=== PATIENT | female | born 1975 | race Caucasian/White ===

== ENCOUNTER 2016-10-07 22:07 | Emergency (ER) | payer OTHER ==
[2016-10-07 22:18] VITALS: BP 116/68; PULSE 79; TEMP 98; BMI 25.0
--- NOTE | 2016-10-07 22:40 | PDOC ---
History of Present Illness - General Chief Complaint: Pain Stated Complaint: ABD PAIN Time Seen by Provider: 10/07/16 22:09 - History of Present Illness Initial Comments: 10/07/16 22:59 Patient speaks mainly Romanian. Son is full time staff interpreter. This 41-year-old woman no significant past medical history presents with a one- day history of lower abdominal pain. She had been seen by your general medical doctor 4 days ago with urinary frequency and dysuria. She was diagnosed as having a urinary tract infection and Keflex 500 mg twice a day for one week was prescribed (patient has been taking medications as prescribed. She states she was also told that her urine test was positive. LMP 09/07/16. Patient noted onset of midline lower abdominal pain earlier today. She has nausea without vomiting. No fever or chills are noted. No vaginal discharge or bleeding No history of ectopic pregnancies although of son was thought to be "tubal" although this was proved not to be. Past History - Past Medical History Allergies/Adverse Reactions: Allergies Allergy/AdvReac Type Severity Reaction Status Date / Time aspirin Allergy Verified 10/07/16 22:09 Home Medications: Ambulatory Orders NK [No Known Home Medication] 10/07/16 - Reproductive History Is Patient Now?: Yes (1 MONTH) - Psycho/Social/Smoking Cessation Hx Anxiety: No Suicidal Ideation: No Smoking History: Unknown if ever smoked Have you smoked in the past 12 months: No Number of Cigarettes Smoked Daily: 0 Information on smoking cessation initiated: No Hx Alcohol Use: No Drug/Substance Use Hx: No Substance Use Type: None Review of Systems - Review of Systems Able to Perform ROS?: Yes Comments:: 12 point review of systems is negative except for what is noted in the history of present illness *Physical Exam - Vital Signs Last Vital Signs Temp Pulse Resp BP Pulse Ox 98 F 79 14 116/68 100 10/07/16 22:11 10/07/16 22:11 10/07/16 22:11 10/07/16 22:11 10/07/16 22:11 - Physical Exam Comments: GENERAL: Awake, alert, and fully oriented, in no acute distress HEAD: No signs of trauma EYES: PERRLA, EOMI, sclera anicteric, conjunctiva clear ENT: Auricles normal inspection, hearing grossly normal, nares patent, oropharynx clear without exudates. Moist mucosa NECK: Normal ROM, supple, no lymphadenopathy, JVD, or masses LUNGS: Breath sounds clear and equal. No wheezes, and no crackles HEART: Regular rate and rhythm, normal S1 and S2, no murmurs, rubs or gallops ABDOMEN: Soft, normoactive bowel sounds. Moderate tenderness suprapubic region ; No guarding, no rebound. No masses EXTREMITIES: Normal range of motion, no edema. No clubbing or cyanosis. No cords, erythema, or tenderness NEUROLOGICAL: Cranial nerves II through XII grossly intact. Normal speech, normal gait SKIN: Warm, Dry, normal turgor, no rashes or lesions noted. ED Treatment Course - LABORATORY CBC & Chemistry Diagram: 10/07/16 23:09 10/07/16 23:09 Medical Decision Making - Medical Decision Making CBC, chemistry profile, quantitative beta hCG, urinalysis and urine test sent. Urine is positive. Urinalysis shows no abnormality on dipstick exam. Because patient is confirmed to be and is in first trimester, ectopic must be ruled out. Pelvic ultrasound ordered. Patient given a 1 L of normal saline IV. Laboratory evaluation notable only for minimal elevation of white blood cell count of 10,900. Remainder of the CBC and chemistry profile are unremarkable. Quantitative beta hCG is 2095, consistent with anywhere from 2-5 weeks gestation Pelvic ultrasound preliminary interpretation by Imaging b2b sales consultant: Small intrauterine gestational sac without evidence of adnexal abnormality. Left- sided corpus luteum cyst. Results discussed with the patient and her . The patient states that she had some gastric discomfort with Keflex and wishes to discontinue them. Since she has already taken a 5 day course of the Keflex, she can stop now and observe for recurrence of symptoms. She states that she has a appointment scheduled with her general medical doctor on October 16. She also plans to follow-up with an paper tube grader within the next few weeks. She should return to the emergency room if she has worsening pain or develops vaginal bleeding/ fever/vomiting *DC/Admit/Observation/Transfer Diagnosis at time of Disposition: First trimester , History of UTI - Discharge Dispostion Disposition: HOME Condition at time of disposition: Stable - Patient Instructions Printed Discharge Instructions: DI for Abdominal Pain -- Early Additional Instructions: stop keflex drink plenty of water followup with your general doctor on October 16 as scheduled followup with paper tube grader within 2 weeks return to ER if you have severe pain/bleeding/vomiting/fever Print Language: BELGIAN
[2016-10-07 22:59] LABS: PH,URINE 6.5 (4.5-8); URINE APPEARANCE Clear; URINE BILIRUBIN Negative (NEGATIVE); URINE BLOOD Negative (NEGATIVE); URINE GLUCOSE (UA) Negative (NEGATIVE); URINE KETONE Negative (NEGATIVE); URINE LEUK ESTERASE Negative (NEGATIVE); URINE NITRITE Negative (NEGATIVE); URINE PROTEIN Negative (NEGATIVE); URINE UROBILINOGEN 0.2 E.U/dl (0.2-1.0)
[2016-10-07 23:03] LABS: URINE COLOR YELLOW
[2016-10-07] MEDS ORDERED: SODIUM CHLORIDE 1,000 ML IV STA (23:09)
[2016-10-07 23:34] LABS: BASOPHIL 0.7 % (0-2.0); MCHC 34.4 g/dl (32.0-36.0); MEAN CELL VOLUME 84.3 fl (80-96); MEAN PLT VOLUME 10.2 fl (7.5-11.1); NEUTROPHILS 56.7 % (42.8-82.8); PLATELET COUNT 234 K/MM3 (134-434); RDW 13.3 % (11.6-15.6); WHITE BLOOD COUNT 10.9 K/mm3 (4.0-10.8)
[2016-10-07 23:38] LABS: ALBUMIN 3.8 g/dl (3.5-5.0); ALK PHOS 55 U/L (32-92); ANION GAP 6 (8-16); BILIRUBIN,TOTAL 0.1 mg/dl (0.2-1.0); CALCIUM 9.1 mg/dl (8.4-10.2); CO2 25 mmol/L (22-28); CREATININE 0.7 mg/dl (0.6-1.3); GLUCOSE,RANDOM 106 mg/dl (74-106); SGOT/AST 17 U/L (10-42); SGPT/ALT 15 U/L (10-40); TOT PROT 6.7 g/dl (6.4-8.3)
== END 2016-10-08 01:24 | disposition home or self-care (01) ==
LOC: FER 22:07 → EDBD 22:07 → FER 10-08 01:24
PROC: 3E0337Z Introduction of Electrolytic and Water Balance Substance into Peripheral Vein, Percutaneous Approach (ICD-10-PCS; principal; 2016-10-07)
DX: O26.891 Other specified pregnancy related conditions, first trimester (principal); Z87.440 Personal history of urinary (tract) infections; Z3A.01 Less than 8 weeks gestation of pregnancy
CPT/HCPCS: 36415; 76801-TC; 80053; 81003; 84702; 84703; 85025; 99283-25

== ENCOUNTER 2016-11-16 19:49 | Emergency (ER) | payer OTHER ==
[2016-11-16 20:09] VITALS: BP 104/62; PULSE 68; TEMP 97.5; BMI 31.6
[2016-11-16] MEDS ORDERED: SODIUM CHLORIDE 1,000 ML IV ONE (20:31)
[2016-11-16] MEDS ORDERED: ONDANSETRON 4 MG/2 ML VIAL IVPB ONE (20:31)
--- NOTE | 2016-11-16 20:31 | PDOC ---
History of Present Illness - General History Source: Patient Exam Limitations: No Limitations - History of Present Illness Initial Comments: 11/16/16 20:33 The patient is a swedish speaking 41-year-old woman ( 12-week ) with no significant past medical history, who presents to the ED with superpubic pain, dysuria for 4 hours. She had an Ultrasound last [facility] at [facility]. She was diagnosed with intrauterine and a UTI as well She was put on antibiotics for 2 days but was unable to tolerate due to vomiting. Now she is having progressively worsening dysuria, frequency, fever, nausea, and vomiting. She is also complaining of associated lower back pain and mid-back pain. She denies vaginal discharge, vaginal bleeding. PAST MEDICAL HISTORY: no significant history PAST SURGICAL HISTORY: no significant history FAMILY HISTORY: no pertinent history SOCIAL HISTORY: Pt lives with family and is employed. MEDICATIONS: reviewed ALLERGIES: As per nursing notes ROS General: + fevers. No f chills, no weakness, no weight loss HEENT: No change in vision. No sore throat,. No ear pain CardioVascular: No chest pain or shortness of breath Respiratory:No cough, or wheezing. Gastrointestinal: no nausea, vomiting, diarrhea or constipation, No rectal bleeding Genitourinary: + dysuria, frequency. No hematuria. Musculoskeletal: No joint or muscle pain or swelling Neurologic: No headache, vertigo, dizziness or loss of consciousness Psychiatric: no depression Skin: No rashes or easy bruising Endocrine: no increased thirst or abnormal weight change Allergic: no skin or latex allergy All other systems reviewed and normal Adult Exam: General: Well-nourished well-developed individual, no acute distress HEENT: Throat: Normal, tonsils normal, no erythema or exudate Neck: Supple, no meningeal signs, no lymphadenopathy Eyes::Pupils equal reactive and round, extraocular motion intact Chest: Nontender to palpation Cardiac: S1-S2 normal, regular rate and rhythm, no murmurs rubs or gallops Respiratory: Lungs clear to auscultation bilateral Abdomen: Superpubic tenderness. Soft, nondistended, normal bowel sounds. Back: Right flank, right CVA tenderness. Extremities: Warm, dry, no cyanosis, clubbing, or edema Skin: No rashes Neuro: Alert and oriented x3, nonfocal exam, grossly intact, normal gait Psych: Normal mood and affect <Parish Barahona - Last Filed: 11/16/16 20:33> - General History Source: Patient, Sales Office Administrator Used Exam Limitations: Language Barrier - History of Present Illness Initial Comments: 11/16/16 23:18 Assessment and plan: This is a 41-year-old female who comes in complaining of urinary symptoms and abdominal pain and flank pain. Patient had a workup including labs which do show she had a mild urinary tract infection. Patient was given IV ceftriaxone for the urinary tract infection. Patient is also approximately 10 and half weeks by ultrasound. Patient's ultrasound also did show an extra renal mass of some sort it is uncertain whether it is infectious or benign or malignant however discussed with patient the ultrasound finding via the certified court interpreter and the patient does have a doctor she can take the ultrasound follow up on the abnormal finding. In addition to that patient has a cyst on her ovary that she also was made aware of that will need to be evaluated further by her OB doctor. Patient given copies of all of her reports and lab work and will call her OB doctor in the morning and get an appointment to follow-up this week or next week if possible. <Octaviano Jimenez I - Last Filed: 11/16/16 23:21> - General Chief Complaint: Nausea/Vomiting Stated Complaint: NAUSEA, VOMITING ~12 WKS AOG Time Seen by Provider: 11/16/16 19:51 Past History <Parish Barahona - Last Filed: 11/16/16 20:33> - Past Medical History Other medical history: 12 WKS AOG - Psycho/Social/Smoking Cessation Hx Anxiety: No Suicidal Ideation: No Smoking History: Never smoked Have you smoked in the past 12 months: No Number of Cigarettes Smoked Daily: 0 Information on smoking cessation initiated: No Hx Alcohol Use: No Drug/Substance Use Hx: No Substance Use Type: None <Octaviano Jimenez I - Last Filed: 11/16/16 23:21> - Past Medical History Allergies/Adverse Reactions: Allergies Allergy/AdvReac Type Severity Reaction Status Date / Time aspirin Allergy Verified 11/16/16 19:51 Home Medications: Ambulatory Orders Vit/Iron Fumarate/FA [ Tablet] 1 each PO DAILY 11/16/16 *Physical Exam - Vital Signs Last Vital Signs Temp Pulse Resp BP Pulse Ox 97.5 F L 68 18 104/62 100 11/16/16 19:50 11/16/16 19:50 11/16/16 19:50 11/16/16 19:50 11/16/16 19:50 <Parish Barahona - Last Filed: 11/16/16 20:33> - Vital Signs Last Vital Signs Temp Pulse Resp BP Pulse Ox 97.5 F L 68 18 104/62 100 11/16/16 19:50 11/16/16 19:50 11/16/16 19:50 11/16/16 19:50 11/16/16 19:50 <Octaviano Jimenez I - Last Filed: 11/16/16 23:21> ED Treatment Course - LABORATORY CBC & Chemistry Diagram: 11/16/16 20:45 11/16/16 20:45 <Octaviano Jimenez I - Last Filed: 11/16/16 23:21> *DC/Admit/Observation/Transfer - Attestations Scribe Attestion: 11/16/16 20:36 Documentation prepared by Parish Barahona, acting as medical technologist chemistry for Otcaviano Jimenez MD. <Parish Barahona - Last Filed: 11/16/16 20:33> <Octaviano Jimenez I - Last Filed: 11/16/16 23:21> Diagnosis at time of Disposition: First trimester , Cyst of ovary Abdominal mass Qualifiers: Abdominal location: other location Qualified Code(s): R19.09 - Other intra- abdominal and pelvic swelling, mass and lump - Discharge Dispostion Disposition: HOME Condition at time of disposition: Stable - Patient Instructions Additional Instructions: You were given copies of your ultrasound and blood work. It is very important that you follow-up the abnormal findings on your ultrasound with your OB doctor this week or early next week. Call your doctor in the morning and get an appointment for as soon as possible. When you go to the appointment take copies of your blood work and your ultrasounds with you. Return to the emergency department immediately with ANY new, persistent or worsening symptoms. Continue any medications as previously prescribed by your physician. You should follow up with your primary doctor as soon as possible regarding today's emergency department visit. . Please make sure your doctor reviews the results of your emergency evaluation. Thank you for coming to the Emergency Department today for your care. It was a pleasure to see you today. Please note that your evaluation is INCOMPLETE until you follow-up with your doctor.
[2016-11-16] MEDS ORDERED: ONDANSETRON 4 MG/2 ML VIAL ONE (20:59)
[2016-11-16 21:11] LABS: BASOPHIL 0.9 % (0-2.0); EOSINOPHIL 4.3 % (0-4.5); MCH 28.8 pg (25.7-33.7); MCHC 34.1 g/dl (32.0-36.0); MEAN CELL VOLUME 84.6 fl (80-96); MEAN PLT VOLUME 10.6 fl (7.5-11.1); PLATELET COUNT 213 K/MM3 (134-434); RDW 14.2 % (11.6-15.6); WHITE BLOOD COUNT 10.2 K/mm3 (4.0-10.8)
[2016-11-16 21:19] LABS: ALBUMIN 3.4 g/dl (3.5-5.0); ALK PHOS 48 U/L (32-92); ANION GAP 7 (8-16); CALCIUM 8.9 mg/dl (8.4-10.2); CO2 24 mmol/L (22-28); CREATININE 0.4 mg/dl (0.6-1.3); GLUCOSE,RANDOM 88 mg/dl (74-106); SGOT/AST 16 U/L (10-42); SGPT/ALT 14 U/L (10-40); TOT PROT 6.4 g/dl (6.4-8.3)
[2016-11-16 21:23] LABS: BILIRUBIN,TOTAL < 0.3 mg/dl (0.2-1.0)
[2016-11-16 21:48] LABS: URINE APPEARANCE Clear; URINE BILIRUBIN Negative (NEGATIVE); URINE BLOOD Negative (NEGATIVE); URINE GLUCOSE (UA) Negative (NEGATIVE); URINE KETONE Negative (NEGATIVE); URINE LEUK ESTERASE Trace (NEGATIVE); URINE NITRITE Negative (NEGATIVE); URINE PROTEIN Negative (NEGATIVE); URINE UROBILINOGEN 0.2 E.U/dl (0.2-1.0)
[2016-11-16 21:52] LABS: URINE COLOR YELLOW
[2016-11-16] MEDS ORDERED: cefTRIAXone SODIUM 1 GM VIAL ONE (21:55)
[2016-11-16] MEDS ORDERED: CEFTRIAXONE 1 GM in DEXTROSE 5%-WATER - 50 ML IVPB ONE (21:57)
--- NOTE | 2016-11-20 18:13 | PDOC ---
Patient Follow-up (Call Back) - Post ED Follow - Up Condition at time of discharge: Stable Disposition at time of original discharge: HOME - Disposition Additional Instructions/Notes: Called back for positive urine culture, chavira-sensitive GBS. Will treat with keflex. Patient requested [facility] in [place], will pharmacy picking tech in AM. She has not had any vomiting.
== END 2016-11-16 23:33 | disposition home or self-care (01) ==
LOC: FER 19:49
PROC: 3E03329 Introduction of Other Anti-infective into Peripheral Vein, Percutaneous Approach (ICD-10-PCS; principal; 2016-11-16)
PROC: 3E033GC Introduction of Other Therapeutic Substance into Peripheral Vein, Percutaneous Approach (ICD-10-PCS; 2016-11-16)
PROC: 3E0337Z Introduction of Electrolytic and Water Balance Substance into Peripheral Vein, Percutaneous Approach (ICD-10-PCS; 2016-11-16)
DX: O26.891 Other specified pregnancy related conditions, first trimester (principal); Z3A.12 12 weeks gestation of pregnancy; N83.209 Unspecified ovarian cyst, unspecified side; R19.09 Other intra-abdominal and pelvic swelling, mass and lump
CPT/HCPCS: 36415; 76775-TC; 76815-TC; 80053; 81003; 85025; 87040; 87086; 87186; 99283-25

== ENCOUNTER 2016-11-25 07:30 | Emergency (ER) | payer OTHER ==
[2016-11-25 07:38] VITALS: BP 118/62; PULSE 73; TEMP 97.5; BMI 33.5
--- NOTE | 2016-11-25 08:12 | PDOC ---
History of Present Illness - General Chief Complaint: Rectal Bleed Stated Complaint: BLOOD IN STOOL Time Seen by Provider: 11/25/16 07:50 - History of Present Illness Initial Comments: 11/25/16 08:12 Chief complaint: Vaginal bleeding History of present illness: Patient states that this morning while having a bowel movement, she had vaginal bleeding consisting of blood and clots. Last menstrual period was September 07, she states that she is 11 weeks , and was seen for this for the first time on Wednesday at the [facility] in [place]. There is no pain or cramping. She was begun on antibiotics at her recent clinic visit for UTI. She has no dysuria or hematuria. She is 3, para 3, youngest child 15 years old, no pregnancies since then, this was an "accident" but she wants to have another baby if possible. She had one miscarriage approximately 17 years ago at approximately 2 months of gestation. Review of systems: Denies lightheadedness or dizziness, abdominal or pelvic pain , chest pain, shortness of breath, hematuria or blood in the stool, recent illness including URI, sore throat, cough, nausea, vomiting, diarrhea. Remainder systems reviewed and found to be negative Past medical history: As noted above, 3, para 3, recently diagnosed UTI , otherwise healthy female without significant active medical problems Social history: , stable home and family, no alcohol drugs or tobacco Family history: Reviewed and noncontributory including clotting disorders, blood clots, abnormal bleeding, early coronary artery disease, metabolic disease including diabetes, and cancer Physical exam: Alert and oriented well-developed well-nourished no acute distress no pain cheerful and cooperative Afebrile, vital signs normal No pallor or icterus. PERRLA, conjunctivae, and fundi clear, ENT clear Neck supple without bruit mass or nodes Chest clear full breath sounds bilaterally CV S1 and S2 normal regular without murmur rub or gallop pulses full and symmetric no JVD or edema Abdomen nondistended, bowel sounds normal, soft without mass tenderness or organomegaly. No CVAT Neck exam: External genitalia normal. Dark red blood is present in the vagina. No clots are noted. Cervical os is closed. There is no tissue evident. The uterus is normal in size, firm, nontender, does not appear to be enlarged. There are no adnexal masses or tenderness. Extremities no CCE Skin clear, no rash, adequate turgor and wet mucous membranes Neurological C2 to 12 intact. Strength full and symmetric. No focal sensory or motor deficits. Gait stable and unimpaired. DTRs 2+ symmetric. No clonus Impression: 41-year-old, approximately 11 weeks , with vaginal bleeding beginning this morning, consisting of clots and blood, uncertain if there was tissue. Threatened AB, rule out ectopic Plan: CBC, quantitative beta, ultrasound, and further obstetric management depending on results. Past History - Past Medical History Allergies/Adverse Reactions: Allergies Allergy/AdvReac Type Severity Reaction Status Date / Time aspirin Allergy Verified 11/25/16 07:32 Home Medications: Ambulatory Orders Amoxicillin - [Amoxicillin 500mg Capsule -] 500 mg PO BID 11/25/16 Vits #93/Iron Fum/FA [ Formula Tablet] 1 each PO DAILY Ranitidine [Zantac -] 150 mg PO DAILY 11/25/16 Other medical history: 3 MONTHS - Reproductive History (#): 4 Para: 3 - Psycho/Social/Smoking Cessation Hx Anxiety: No Suicidal Ideation: No Smoking History: Never smoked Have you smoked in the past 12 months: No Number of Cigarettes Smoked Daily: 0 Information on smoking cessation initiated: No Hx Alcohol Use: No Drug/Substance Use Hx: No Substance Use Type: None *Physical Exam - Vital Signs Last Vital Signs Temp Pulse Resp BP Pulse Ox 97.5 F L 73 20 118/62 98 11/25/16 07:31 11/25/16 07:31 11/25/16 07:31 11/25/16 07:31 11/25/16 07:31 ED Treatment Course - LABORATORY CBC & Chemistry Diagram: 11/25/16 08:17 Medical Decision Making - Medical Decision Making 11/25/16 10:09 Ultrasound shows a viable fetus within the uterine cavity. There is no sign of adnexal mass or free fluid that might suggest an ectopic . This is most likely a threatened AB. Absolute bedrest was recommended as well as follow- up with primary TANK TRUCK ENGINE MECHANIC physician as soon as possible. 11/25/16 10:25 Spoke with the patient at length in the presence of her son, who speaks excellent Azeri and is able to fully communicate. She understands that bedrest as necessary, and will take a taxi home. She understands further that her OB doctor will be calling her later today to arrange for a follow-up visit tomorrow. She is advised that if she doesn't hear from her doctor by late this afternoon, that she should call him herself and arrange follow-up within 24 hours. I spoke to the [facility] myself ,[place], who works with Dr. Garrison, the TANK TRUCK ENGINE MECHANIC physician. The situation was explained completely, including the bleeding and the results of the ultrasound. She will discuss this with Dr. Garrison and arrange close follow-up with reexamination tomorrow. The patient is given a copy of her ultrasound as well as the written report. Again, the patient is advised that if she doesn't hear from Dr. Garrison by this afternoon she should call herself to make sure that she is scheduled for a visit tomorrow. If the bleeding becomes more severe or if there are new symptoms of blood loss including lightheadedness, dizziness, chest pain, shortness of breath, or abdominal pain or cramping, she is to return to the emergency room. 11/25/16 10:48 Patient hemodynamically stable, with no pain and no other symptoms, bleeding subsided, fully ambulatory, discharge with her son *DC/Admit/Observation/Transfer Diagnosis at time of Disposition: Threatened - Discharge Dispostion Disposition: HOME Condition at time of disposition: Stable Admit: No - Patient Instructions Printed Discharge Instructions: DI for Threatened Additional Instructions: Bedrest. See your TANK TRUCK ENGINE MECHANIC physician Dr. Garrison within 24 hours for further evaluation and treatment. Return to the emergency room if the bleeding becomes more severe, if you have pain or cramping, or if you have lightheadedness, dizziness, chest pain, or shortness of breath. Your TANK TRUCK ENGINE MECHANIC physician Dr. Garrison was contacted by phone. Stated you will be called later today to schedule an appointment for tomorrow. If you do not hear from your doctor, please call the clinic by late afternoon and arrange a recheck within 24 hours. Take along the report of the ultrasound as well as the copy of the study itself that you were furnished in the emergency room.
[2016-11-25] MEDS ORDERED: SODIUM CHLORIDE 1,000 ML IV STA (08:27)
[2016-11-25 08:46] LABS: BASOPHIL 0.9 % (0-2.0); EOSINOPHIL 4.3 % (0-4.5); MCH 28.5 pg (25.7-33.7); MCHC 33.3 g/dl (32.0-36.0); MEAN CELL VOLUME 85.6 fl (80-96); MEAN PLT VOLUME 10.7 fl (7.5-11.1); NEUTROPHILS 68.1 % (42.8-82.8); PLATELET COUNT 188 K/MM3 (134-434); RDW 14.2 % (11.6-15.6); WHITE BLOOD COUNT 8.2 K/mm3 (4.0-10.8)
== END 2016-11-25 11:12 | disposition home or self-care (01) ==
LOC: FER 07:30
PROC: 3E0337Z Introduction of Electrolytic and Water Balance Substance into Peripheral Vein, Percutaneous Approach (ICD-10-PCS; principal; 2016-11-25)
DX: O26.891 Other specified pregnancy related conditions, first trimester (principal); Z3A.11 11 weeks gestation of pregnancy; O20.0 Threatened abortion
CPT/HCPCS: 36415; 76801-TC; 84702; 85025; 96360; 99283-25

== ENCOUNTER 2019-12-08 23:24 | Emergency (ER) | payer OTHER ==
[2019-12-08 23:31] VITALS: BP 120/72; PULSE 72; TEMP 97.8; BMI 37.4
[2019-12-09] MEDS ORDERED: AMOXICILLIN 500 MG CAPSULE (FP) PO ONE (00:14)
[2019-12-09] MEDS ORDERED: AMOXICILLIN 250 MG CAPSULE ONE (00:17)
--- NOTE | 2019-12-09 00:17 | PDOC ---
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 Patient has a history of sinusitis and occasional bronchitis in the past. She notes several days of frontal discomfort, which is a symptom typical of her sinusitis. She also has postnasal drip and throat discomfort, also typical of her sinusitis. There has been no fever/chills, shortness of breath, palpitations, lightheadedness. No history of nausea/vomiting/diarrhea or abdominal pain. No history of smoking, HTN, HLD, early coronary artery disease in her family On no daily medications Denies smoking, daily alcohol or other recreational drug use 12/09/19 03:39 Past History - Medical History Allergies/Adverse Reactions: Allergies Allergy/AdvReac Type Severity Reaction Status Date / Time aspirin Allergy Verified 11/25/16 07:32 Home Medications: Ambulatory Orders Amoxicillin - [Amoxicillin 500mg Capsule -] 500 mg PO TID #21 capsule 12/09/19 COPD: No Diabetes: Yes ('PRE') - Reproductive History (#): 4 Para: 3 - Psycho-Social/Smoking History Smoking History: Never smoked Have you smoked in the past 12 months: No Number of Cigarettes Smoked Daily: 0 Review of Systems - Review of Systems Able to Perform ROS?: Yes Comments:: 12 point review of systems is negative except for what is noted in the history of present illness *Physical Exam - Vital Signs Last Vital Signs Temp Pulse Resp BP Pulse Ox 97.8 F 72 16 120/72 100 12/08/19 23:27 12/08/19 23:27 12/08/19 23:27 12/08/19 23:27 12/08/19 23:27 - Physical Exam GENERAL: Adult female, alert and oriented x3, no acute distress HEAD: Mild bilateral forehead tenderness otherwise normal, with no signs of trauma. EYES: PERRLA, EOMI, sclera anicteric, conjunctiva clear. ENT: Ears normal, nares patent, oropharynx clear without exudates. Dry mucous membranes. NECK: Normal range of motion, supple without lymphadenopathy, JVD, or masses. LUNGS: Breath sounds equal, clear to auscultation bilaterally. No wheezes, and no crackles. No chest wall tenderness HEART:Regular rate and rhythm, normal S1 and S2 without murmur, rub or gallop. ABDOMEN:.normal bowel sounds No guarding,tenderness or rebound.No masses No distention. EXTREMITIES: Normal range of motion, no edema. No clubbing or cyanosis. No erythema, or tenderness. NEUROLOGICAL: Cranial nerves II through XII grossly intact. Normal speech. No focal neurological deficits. SKIN: Warm, Dry, normal turgor, no rashes or lesions noted. Twelve-lead electrocardiogram is performed: Normal sinus rhythm at 73 bpm; axis, intervals and waveforms are all normal. No evidence of acute ST or T wave abnormalities. No evidence of acute cardiac arrhythmia. No previous EKG t racings are available for comparison Medical Decision Making - Medical Decision Making As noted above, this 44-year-old woman with no significant past medical history except prediabetes presents with few day history of mildly productive cough and symptoms consistent with recurrence of her chronic sinusitis. She also is complaining of bilateral upper chest pain with coughing, deep breathing and movement. She otherwise does not have chest pain and has had no shortness of breath, fever or chills, diaphoresis or nausea. Exam as noted with clear lungs and no chest wall tenderness. She does have some frontal sinus area mild tenderness Twelve-lead electrocardiogram as noted above is unremarkable Patient's chest pain is very likely related to her coughing secondary to developing bronchitis. Patient will be started on amoxicillin 500 mg 3 times a day. She should return to the ER if she has worsening of her chest pain, or if she develops fever, shortness of breath. She should follow-up with her physician within the next 5 days Discharge - Discharge Information Problems reviewed: Yes Clinical Impression/Diagnosis: Acute bronchitis Qualifiers: Bronchitis organism: other organism Qualified Code(s): J20.8 - Acute bronchitis due to other specified organisms Acute sinusitis Qualifiers: Sinusitis location: frontal Recurrence: recurrent Qualified Code(s): J01.11 - Acute recurrent frontal sinusitis Condition: Stable Disposition: HOME - Additional Discharge Information Prescriptions: Amoxicillin - [Amoxicillin 500mg Capsule -] 500 mg PO TID #21 capsule - Follow up/Referral - Patient Discharge Instructions Patient Printed Discharge Instructions: DI for Atypical Chest Pain Additional Instructions: Rest; drink plenty of water Amoxicillin 500 mg 3 times a day for 1 week Ibuprofen/acetaminophen/naproxen as needed for pain Return to ER if you have shortness of breath, persistent severe pain or fever Follow-up with your doctor within the next 5 days Print Language: LITHUANIAN - Post Discharge Activity
--- NOTE | 2019-12-09 14:59 | EKG ---
Test Reason : Blood Pressure : / mmHG Vent. Rate : 073 BPM Atrial Rate : 073 BPM P-R Int : 142 ms QRS Dur : 082 ms QT Int : 408 ms P-R-T Axes : 047 030 032 degrees QTc Int : 449 ms NORMAL SINUS RHYTHM NORMAL ECG NO PREVIOUS ECGS AVAILABLE Confirmed by GISELLE DURAND MD ([id number]) on 12/09/2019 2:59:15 PM Referred By: Confirmed By:GISELLE DURAND MD
== END 2019-12-09 00:21 | disposition home or self-care (01) ==
LOC: FER 23:24
DX: J20.8 Acute bronchitis due to other specified organisms (principal); J01.11 Acute recurrent frontal sinusitis
CPT/HCPCS: 93005; 99283-25

== ENCOUNTER 2020-11-10 10:08 | Emergency (ER) | payer OTHER ==
[2020-11-10] MEDS ORDERED: ACETAMINOPHEN 500 MG TABLET (FP) PO ONE (10:27)
[2020-11-10] MEDS ORDERED: IBUPROFEN 600 MG TABLET (FP) PO ONE ×2 (10:28→10:34)
[2020-11-10 10:29] VITALS: BP 97/73; PULSE 56; TEMP 98.1; BMI 34.3
[2020-11-10] MEDS ORDERED: ACETAMINOPHEN 500 MG TABLET (FP) ONE (10:34)
[2020-11-10 10:52] LABS: EPITHELIAL CELLS FEW /hpf
[2020-11-10] MEDS ORDERED: CEPHALEXIN MONOHYDRATE 500 MG CAPSULE (UD) PO ONE (11:39)
[2020-11-10] MEDS ORDERED: CEPHALEXIN MONOHYDRATE 500 MG CAPSULE (UD) ONE (11:50)
[2020-11-11 14:07] LABS: SARS-CoV-2 NAA Not Detected (Not Detected)
== END 2020-11-10 12:01 | disposition home or self-care (01) ==
LOC: FER 10:08
DX: M79.10 Myalgia, unspecified site (principal); R68.83 Chills (without fever); N39.0 Urinary tract infection, site not specified
CPT/HCPCS: 81003; 81015; 87086; 87186; 87804; 99283-25; C9803; U0003; U0005

== ENCOUNTER 2021-04-22 06:30 | Emergency (ER) | payer OTHER ==
[2021-04-22 06:37] VITALS: BP 127/80; PULSE 78; TEMP 97.9; BMI 35.6
[2021-04-22] MEDS ORDERED: ACETAMINOPHEN 500 MG TABLET (FP) PO ONE (07:21)
[2021-04-22] MEDS ORDERED: MAG HYDROX/AL HYDROX/SIMETH 30 ML UNIT-DOSE CUP PO ONE (07:21)
[2021-04-22] MEDS ORDERED: ONDANSETRON *ODT* 4 MG TABLET SL ONE (07:21)
[2021-04-22] MEDS ORDERED: ACETAMINOPHEN 500 MG TABLET (FP) ONE (07:26)
[2021-04-22] MEDS ORDERED: ONDANSETRON *ODT* 4 MG TABLET ONE (07:26)
[2021-04-22] MEDS ORDERED: MAG HYDROX/AL HYDROX/SIMETH 30 ML UNIT-DOSE CUP ONE (07:27)
[2021-04-22 08:33] LABS: EPITHELIAL CELLS FEW /hpf; URINE MUCUS 1+
== END 2021-04-22 09:03 | disposition home or self-care (01) ==
LOC: FER 06:30
DX: R11.0 Nausea (principal); M79.10 Myalgia, unspecified site; R30.0 Dysuria
CPT/HCPCS: 81003; 81015; 84703; 87086; 87804; 93005; 99284-25; C9803; Q0162; U0003; U0005

== ENCOUNTER 2022-05-19 12:54 | Emergency (ER) | payer OTHER ==
[2022-05-19 13:26] VITALS: BP 126/71; PULSE 78; RESP 18; TEMP 98; BMI 34.3
[2022-05-19] MEDS ORDERED: ACETAMINOPHEN 500 MG TABLET (FP) PO ONE (15:38)
[2022-05-19] MEDS ORDERED: ACETAMINOPHEN 325 MG TABLET (FP) ONE (15:50)
[2022-05-19 16:32] LABS: BASO % 0.6 % (0-2.0); EOS % 5.8 % (0-4.5); HEMATOCRIT 38.1 % (32.4-45.2); HEMOGLOBIN 12.1 GM/dL (10.7-15.3); LYMPH % 29.9 % (8-40); MCH 25.3 pg (25.7-33.7); MCHC 31.7 g/dl (32.0-36.0); MEAN PLT VOLUME 9.6 fl (7.5-11.1); MONO % 5.7 % (3.8-10.2); PLATELET COUNT 270 10^3/uL (134-434); RBC 4.77 M/mm3 (3.60-5.2); RDW 15.5 % (11.6-15.6); WHITE BLOOD COUNT 9.5 K/mm3 (4.0-10.0)
[2022-05-19 16:51] LABS: ALBUMIN 3.4 g/dl (3.4-5.0); BLOOD UREA NITROGEN 8.6 mg/dL (7-18); MAGNESIUM 2.4 mg/dL (1.8-2.4)
[2022-05-19 16:55] LABS: CREATININE 0.6 mg/dL (0.55-1.3)
[2022-05-19 16:56] LABS: BILIRUBIN,TOTAL 0.3 mg/dL (0.2-1); TOT PROT 7.1 g/dl (6.4-8.2)
== END 2022-05-19 17:29 | disposition home or self-care (01) ==
LOC: JER 12:54
DX: R07.9 Chest pain, unspecified (principal)
CPT/HCPCS: 0241U-QW; 36415; 71046-TC-FY; 80053; 83735; 84484; 85025; 93005; 93010; 99285-25

== ENCOUNTER 2022-12-21 17:17 | Emergency (ER) | payer OTHER ==
[2022-12-21 17:31] VITALS: BP 119/76; PULSE 58; RESP 18; TEMP 97.8; BMI 35.4
[2022-12-21] MEDS ORDERED: ACETAMINOPHEN 1000 MG/100 ML BAG IVPB ONE (18:20)
[2022-12-21] MEDS ORDERED: ACETAMINOPHEN INJECTION 100 ML IVPB ONE (18:23)
[2022-12-21 18:43] LABS: HEMATOCRIT 34.9 % (32.4-45.2); HEMOGLOBIN 11.7 G/dL (10.7-15.3); MCH 28.3 pg (25.7-33.7); MCHC 33.5 g/dl (32.0-36.0); MEAN CELL VOLUME 84.4 fl (80-96); MEAN PLT VOLUME 9.3 fl (7.5-11.1); PLATELET COUNT 236.2 10^3/uL (134-434); RBC 4.13 10^6/uL (3.60-5.2); RDW 15.7 % (11.6-15.6); WHITE BLOOD COUNT 9.6 10^3/uL (4.0-10.8)
[2022-12-21 18:48] LABS: EPITHELIAL CELLS FEW /hpf
[2022-12-21 19:03] LABS: ALBUMIN 4.1 g/dl (3.4-5.0); BILIRUBIN,TOTAL 0.3 mg/dl (0.2-1); BLOOD UREA NITROGEN 9.3 mg/dl (7-18); CALCIUM 8.9 mg/dl (8.5-10.1); CREATININE 0.6 mg/dl (0.6-1.3); MAGNESIUM 2.1 mg/dL (1.8-2.4); POTASSIUM 3.8 mmol/L (3.5-5.1); SGOT/AST 12.9 U/L (15-37); SGPT/ALT 12.8 U/L (7-52); TOT PROT 6.6 g/dl (6.4-8.2)
[2022-12-21 21:48] LABS: PLATELET ESTIMATE ADEQUATE
== END 2022-12-21 20:55 | disposition home or self-care (01) ==
LOC: FER 17:17
PROC: 3E033NZ Introduction of Analgesics, Hypnotics, Sedatives into Peripheral Vein, Percutaneous Approach (ICD-10-PCS; principal; 2022-12-21)
DX: R10.31 Right lower quadrant pain (principal); M54.9 Dorsalgia, unspecified
CPT/HCPCS: 36415; 74177-TC; 80053; 81003; 81015; 83605; 83690; 83735; 84703; 85027; 87086; 99285-25; Q9967